=== PATIENT | male | born 1975 | race Asian ===

== ENCOUNTER 2018-04-11 07:59 | Emergency (ER) | payer BC, OTHER ==
[~2018-04-11] VITALS: Ht 160 cm; Wt 59.0 kg
[2018-04-11] MEDS ORDERED: KETOROLAC TROMETHAMINE 30 MG/ML VIAL IV STA (08:12)
[2018-04-11 08:36] LABS: BASOPHILS % 0.5 % (0.0-1.0); EOSINOPHILS # (AUTO) 0.1 (0.0-0.4); EOSINOPHILS % 1.5 % (0.0-6.0); HEMATOCRIT 43.2 % (38.2-49.6); HEMOGLOBIN 14.8 g/dL (14.0-18.0); LYMPHOCYTES # (AUTO) 1.7 (1.0-3.2); LYMPHOCYTES % 28.3 % (18.0-39.1); MEAN CORPUSCULAR HEMOGLOBIN 28.6 pg (28-32); MEAN CORPUSCULAR HGB CONC 34.3 g/dL (31-35); MEAN CORPUSCULAR VOLUME 83.4 fL (81-99); MONOCYTES # (AUTO) 0.5 (0.2-0.8); NEUTROPHILS # (AUTO) 3.8 (2.1-6.9); NEUTROPHILS % 61.5 % (38.7-80.0); PLATELET COUNT 250 x10e3/uL (140-360); RED BLOOD COUNT 5.18 x10e6/uL (4.3-5.7); RED CELL DISTRIBUTION WIDTH 11.9 % (11.7-14.4)
--- NOTE | 2018-04-11 08:43 | Diagnostic Imaging Report ---
PROCEDURE:X-RAY RIGHT KNEE, THREE OR MORE VIEWS COMPARISON:None. INDICATIONS:RIGHT KNEE PAIN, LOWER THIGH SWOLLEN FOR 2 DAYS FINDINGS: The bones are well-mineralized. There are no fracture or malalignment. Moderate suprapatellar joint effusion. Mild quadriceps enthesopathy. CONCLUSION: Moderate suprapatellar joint effusion without evidence of fracture or malalignment. Dictated by: RAJINDER CHÁVEZ M.D. on 04/11/2018 at 8:48 Electronically approved by: RAJINDER CHÁVEZ M.D. on 04/11/2018 at 8:48
[2018-04-11 08:55] LABS: ALANINE AMINOTRANSFERASE 33 IU/L (0-55); ALBUMIN 3.8 g/dL (3.5-5.0); ALBUMIN/GLOBULIN RATIO 0.8 (0.8-2.0); ALKALINE PHOSPHATASE 66 IU/L (40-150); ANION GAP 13.1 mmol/L (8-16); BLOOD UREA NITROGEN 12 mg/dL (7-26); BUN/CREATININE RATIO 12 (6-25); CALCIUM 9.9 mg/dL (8.4-10.2); CARBON DIOXIDE 27 mmol/L (22-29); CHLORIDE 101 mmol/L (98-107); CREATININE, SERUM 0.97 mg/dL (0.72-1.25); EST GLOMERULAR FILTRATION RATE > 60 ML/MIN (60-); GLUCOSE 94 mg/dL (74-118); POTASSIUM 4.1 mmol/L (3.5-5.1); SODIUM 137 mmol/L (136-145)
== END 2018-04-11 10:19 | disposition home or self-care (01) ==
LOC: ER 07:59
DX: M25.561 Pain in right knee (principal); M10.061 Idiopathic gout, right knee
CPT/HCPCS: 36415; 73562; 80053; 84550; 85025; 99283; J1885

== ENCOUNTER 2018-05-01 22:53 | Emergency (ER) | payer SELFPAY ==
[~2018-05-01] VITALS: Ht 160 cm; Wt 59.0 kg
== END 2018-05-02 00:14 | disposition home or self-care (01) ==
LOC: ER 22:53
DX: M79.672 Pain in left foot (principal); M10.072 Idiopathic gout, left ankle and foot
CPT/HCPCS: 99282

== ENCOUNTER 2021-06-24 06:42 | Emergency (ER) | payer BC, OTHER ==
[~2021-06-24] VITALS: Ht 160 cm; Wt 68.0 kg
[~2021-06-24 06:42] MED LIST: COLCRYS0.6 MG PO; PREDNISONE50 MG PO
[2021-06-24] MEDS ORDERED: KETOROLAC TROMETHAMINE 60 MG/2 ML VIAL IM ONE (07:15)
[2021-06-24] MEDS ORDERED: KETOROLAC TROMETHAMINE 60 MG/2 ML VIAL ONE (07:33)
[2021-06-24] MEDS ORDERED: INDOCIN50 MG PO (08:04)
== END 2021-06-24 08:07 | disposition home or self-care (01) ==
LOC: FSED 07:01
DX: M25.562 Pain in left knee (principal); M25.462 Effusion, left knee; M10.9 Gout, unspecified; I10 Essential (primary) hypertension; M54.9 Dorsalgia, unspecified; G89.29 Other chronic pain
CPT/HCPCS: 73560; 99283; J1885